=== PATIENT | male | born 1970 | race Caucasian/White ===

== ENCOUNTER 2018-06-14 12:26 | Emergency (ER) | payer OTHER ==
[~2018-06-14] VITALS: Ht 172.7 cm; Wt 81.6 kg
[2018-06-14 12:41] VITALS: Ht 172.7 cm; Wt 81.6 kg
[2018-06-14 15:00] VITALS: BP 130/85
== END 2018-06-14 15:00 | disposition other institution (70) ==
LOC: ED 12:26
DX: L02.211 Cutaneous abscess of abdominal wall (principal); I10 Essential (primary) hypertension; F11.10 Opioid abuse, uncomplicated; Z88.6 Allergy status to analgesic agent
CPT/HCPCS: J2001; J2543; J3490; J7030

== ENCOUNTER 2018-06-14 12:26 | Emergency (ER) | payer OTHER | END 2018-06-14 15:00 | disposition other institution (70) | LOC: ED 12:26 | DX: Z02.89 Encounter for other administrative examinations (principal) ==

== ENCOUNTER 2019-04-08 20:56 | Inpatient (IN) | payer MEDICAID ==
[~2019-04-08] VITALS: Ht 175.3 cm; Wt 78.9 kg
[2019-04-08 21:03] VITALS: Ht 175.3 cm; Wt 78.9 kg
[2019-04-08 21:45] LABS: BASOPHIL % 0.4 % (0-2); PLATELET COUNT 286 x10^3mcL (130-400); RED CELL DISTRIBUTION WIDTH 13.9 % (11.5-14.5)
[2019-04-08 21:50] LABS: CALCIUM 9.1 mg/dL (8.5-10.1); CARBON DIOXIDE 23.9 mmol/L (21-32); CHLORIDE SERUM 105 mmol/L (98-107); GFR1 > 60 mL/min; GLUCOSE SERUM 147 mg/dL (74-106); POTASSIUM SERUM 3.8 mmol/L (3.5-5.1); SODIUM SERUM 142 mmol/L (136-145)
[2019-04-08 21:57] LABS: UA SPECIFIC GRAVITY >=1.030 (1.005-1.035); microscopic required? YES; urine erythrocyte NEGATIVE (NEGATIVE)
[2019-04-08 22:03] LABS: ALBUMIN 4.3 g/dL (3.4-5.0); ALKALINE PHOSPHATASE 74 U/L (46-116); ALT/SGPT 104 U/L (16-63); AST/SGOT 96 U/L (15-37); BILIRUBIN TOTAL 1.28 mg/dL (0.20-1.00); TOTAL PROTEIN, SERUM 8.6 g/dL (6.4-8.2)
[2019-04-08 22:35] LABS: AMPHETAMINE QUAL UR POSITIVE (See below)
[2019-04-09] VITALS (11 sets, daily range): BP systolic 89–128; BP diastolic 57–90
[2019-04-09 05:03] LABS: BASOPHIL % 0.5 % (0-2); PLATELET COUNT 190 x10^3mcL (130-400); RED CELL DISTRIBUTION WIDTH 14.2 % (11.5-14.5)
[2019-04-09 05:16] LABS: CALCIUM 7.8 mg/dL (8.5-10.1); CARBON DIOXIDE 24.1 mmol/L (21-32); CHLORIDE SERUM 110 mmol/L (98-107); CREATININE SERUM 0.7 mg/dL (0.7-1.3); GFR1 > 60 mL/min; GLUCOSE SERUM 101 mg/dL (74-106); MAGNESIUM 2.1 mg/dL (1.8-2.4); PHOSPHOROUS 4.1 mg/dL (2.5-4.9); POTASSIUM SERUM 4.1 mmol/L (3.5-5.1); SODIUM SERUM 144 mmol/L (136-145)
[2019-04-09] MEDS ORDERED: REM15 PO (14:55)
[2019-04-09] MEDS ORDERED: BIKTARVY 50-201 EACH PO (14:55)
[2019-04-09] MEDS ORDERED: ZESTRIL20 MG PO (14:57)
[2019-04-09] MEDS ORDERED: MORPHINE SULFAT15 M7 PO (14:57)
== END 2019-04-09 21:50 | disposition left against medical advice (07) | DRG 812 ==
LOC: ED 20:56 → IC 23:59
PROVIDERS: Emergency Medicine; ADMIT Internal Medicine
PROC: 0BH17EZ Insertion of Endotracheal Airway into Trachea, Via Natural or Artificial Opening (ICD-10-PCS; principal; 2019-04-09)
PROC: 5A1935Z Respiratory Ventilation, Less than 24 Consecutive Hours (ICD-10-PCS; 2019-04-09)
DX: T43.621A Poisoning by amphetamines, accidental (unintentional), initial encounter (principal); J96.01 Acute respiratory failure with hypoxia; G92 Toxic encephalopathy; R65.10 Systemic inflammatory response syndrome (SIRS) of non-infectious origin without acute organ dysfunction; C85.90 Non-Hodgkin lymphoma, unspecified, unspecified site; T40.7X1A Poisoning by cannabis (derivatives), accidental (unintentional), initial encounter; I16.1 Hypertensive emergency; R74.0 Nonspecific elevation of levels of transaminase and lactic acid dehydrogenase [LDH]; E80.6 Other disorders of bilirubin metabolism; F32.9 Major depressive disorder, single episode, unspecified; Y92.512 Supermarket, store or market as the place of occurrence of the external cause
CPT/HCPCS: 36600; 82962; 94150; A4628; G0378; G0480; J0360; J1644; J2250; J2310; J2704; J3010; J3490; J7030; Q0092

== ENCOUNTER 2019-04-10 10:02 | Emergency (ER) | payer OTHER ==
[~2019-04-10] VITALS: Ht 172.7 cm; Wt 81.8 kg
[~2019-04-10 10:02] MED LIST: BIKTARVY 50-201 EACH PO; MORPHINE SULFAT15 M7 PO; REM15 PO; ZESTRIL20 MG PO
[2019-04-10 10:07] VITALS: BP 147/91; Ht 172.7 cm; Wt 81.8 kg
== END 2019-04-10 10:52 | disposition home or self-care (01) ==
LOC: ED 10:02
DX: S61.512D Laceration without foreign body of left wrist, subsequent encounter (principal); S61.511D Laceration without foreign body of right wrist, subsequent encounter; I10 Essential (primary) hypertension; Z88.6 Allergy status to analgesic agent; Z98.890 Other specified postprocedural states; X58.XXXD Exposure to other specified factors, subsequent encounter